=== PATIENT | male | born 1935 | race Caucasian/White ===

== ENCOUNTER 2016-12-22 17:24 | Inpatient (IN) | payer MEDICARE, OTHER ==
[2016-12-22] MEDS ORDERED: Sodium Chloride 0.9% 10 ML Syringe FLUSH PRN (17:36)
--- NOTE | 2016-12-22 17:36 | EDM.PDOC ---
ED HISTORY OF PRESENT ILLNESS - General Chief Complaint: Respiratory Problem Stated Complaint: Shortness of Breath Time Seen by Provider: 12/22/16 17:34 Source of Information: Reports: Patient, EMS notes reviewed, RN, RN notes reviewed History Limitations: Reports: No limitations - History of Present Illness INITIAL COMMENTS - FREE TEXT/NARRATIVE: Patient is brought to the ED at [facility] via EMS for shortness of breath that started today around 1pm. Symptom Onset Date: 12/22/16 Symptom Onset Time: 13:00 Timing/Duration: Reports: Gradual onset Severity: mild Associated Symptoms (General): Reports: no other symptoms Treatments CORPORATE EVENTS DIRECTOR: Reports: See EMS Report - Related Data Allergies/ADRs: Allergies Allergy/AdvReac Type Severity Reaction Status Date / Time Influenza Virus Vaccines Allergy Severe Cannot Verified 12/22/16 17:32 Remember amoxicillin Allergy Shortness Verified 12/22/16 18:15 of Breath atorvastatin calcium Allergy Muscle Verified 12/22/16 18:15 [From Lipitor] Aches ephedrine Allergy Hypertensio Verified 12/22/16 18:15 n ezetimibe [From Zetia] Allergy Nausea and Verified 12/22/16 18:16 Vomiting fenofibrate nanocrystallized Allergy Cannot Verified 12/22/16 18:16 [From Tricor] Remember fenofibrate,micronized Allergy Cannot Verified 12/22/16 17:32 [From Tricor] Remember gemfibrozil Allergy Cannot Verified 12/22/16 17:32 Remember niacin Allergy Cannot Verified 12/22/16 17:32 Remember Pcjhjzx-Amg-Las Reductase Allergy Muscle Verified 12/22/16 18:15 Inhibitor Aches ciprofloxacin AdvReac Nausea and Verified 12/22/16 18:15 Vomiting flu vaccine Allergy Cannot Uncoded 07/29/16 12:14 Remember Home Meds: Home Meds Acetaminophen [Pain Relief] 1,000 mg PO TID PRN 03/24/14 [History] Benazepril [Lotensin] 40 mg PO DAILY 03/24/14 [History] Cholecalciferol (Vitamin D3) [Vitamin D3] 2,000 unit PO DAILY 03/24/14 [History] Ferrous Sulfate [Iron] 325 mg PO DAILY 03/24/14 [History] Fish Oil/[place]-3 Fatty Acids [Fish Oil 1,000 MG] 2,000 mg PO BID 03/24/14 [ History] Flaxseed Oil 1,000 mg PO BID 03/24/14 [History] Multivitamin [Multi-Vitamin Daily] 1 tab PO DAILY 03/24/14 [History] Omeprazole [Prilosec] 20 mg PO BID PRN 03/24/14 [History] Potassium Chloride 10 meq PO DAILY 03/24/14 [History] Albuterol [Proventil HFA] 2 puff INH Q4H PRN 07/29/16 [History] Albuterol [Proventil Neb Soln] 1 inhalation NEB Q4H PRN 07/29/16 [History] Budesonide [Pulmicort] 0.5 mg IH BID 07/29/16 [History] Carboxymethylcellulos/Glycerin [Eq Lubricating Eye Drops] 1 drop OP BID [History] Clobetasol Propionate [Temovate] 1 applic TOP BID PRN 07/29/16 [History] Furosemide [Lasix] 40 mg PO DAILY 07/29/16 [History] Furosemide [Lasix] 60 mg PO DAILY 07/29/16 [History] Naproxen 500 mg PO BID 07/29/16 [History] Nystatin/Triamcinolone Crm [Mycolog Crm] 15 gm TOP BID PRN 07/29/16 [History] Bisacodyl [Dulcolax] 10 mg RECTAL DAILY PRN #0 supp 07/31/16 [Rx] Docusate Sodium [Colace] 100 mg PO DAILY cap 07/31/16 [Rx] Doxazosin [Cardura] 1 mg PO BEDTIME #30 tablet 08/02/16 [Rx] ALPRAZolam [Xanax] 0.25 mg PO BID 12/22/16 [History] Acetaminophen with Codeine [Tylenol with Codeine #3 Tablet] 1 each PO Q6HR PRN 12/22/16 [History] Meclizine [Antivert] 12.5 mg PO TID PRN 12/22/16 [History] tiZANidine HCl [Zanaflex] 4 mg PO TID PRN 12/22/16 [History] Past Medical History HEENT History: Reports: None Cardiovascular History: Reports: Heart Failure, High cholesterol, Hypertension, SOB on exertion, Other (see below) Other Cardiovascular History: Mitral valve regurgitation; PAD Respiratory History: Reports: Asthma Gastrointestinal History: Reports: Chronic constipation, GERD, GI bleed 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 Genitourinary History: Reports: BPH Musculoskeletal History: Reports: Osteoarthritis Neurological History: Reports: Other (see below) Other Neuro History: GBS; restless leg syndrome Psychiatric History: Reports: Anxiety Endocrine/Metabolic History: Reports: None Hematologic History: Reports: Anemia, Iron deficiency Oncologic (Cancer) History: Reports: None Dermatologic History: Reports: Other (see below) Other Dermatologic History: Dermatitis - Past Surgical History Head Surgeries/Procedures: Reports: None HEENT Surgical History: Reports: Cataract surgery GI Surgical History: Reports: Appendectomy, Cholecystectomy, Colonoscopy, Hernia , inguinal Social & Family History - Family History Family Medical History: Noncontributory (Patient's parents are both . His mother from "old age" and he cannot recall the cause of his father's . He has 8 living siblings and he is not aware of any medical issues; He has 1 brother of unknown causes.) - Tobacco Use Smoking Status *Q: Former Smoker Years of Tobacco use: 20 Used Tobacco, but Quit: Yes - Alcohol Use Days Per Week of Alcohol Use: 0 - Recreational Drug Use Recreational Drug Use: No - Living Situation & Occupation Living situation: Reports: , other (lives w/ adult son) Occupation: retired (former pharmacist) ED ROS GENERAL - Review of Systems Review Of Systems: See Below Constitutional: Denies: fever, chills, weakness Respiratory: Reports: shortness of breath, wheezing. Denies: cough, sputum Cardiovascular: Reports: Edema. Denies: Chest pain, Palpitations GI/Abdominal: Denies: Abdominal pain, Nausea, Vomiting Skin: Reports: no symptoms Neurological: Denies: dizziness, headache, numbness, paresthesia, tingling ED EXAM, GENERAL - Physical Exam Exam: See Below Exam Limited By: No limitations General Appearance: alert, no apparent distress Respiratory/Chest: no respiratory distress, decreased breath sounds, wheezing. No: crackles, rhonchi Cardiovascular: regular rate, rhythm, no JVD Peripheral Pulses: 2+: radial (L), radial (R) GI/Abdominal: normal bowel sounds, soft, non tender, no distention Extremities: pedal edema Neurological: alert, oriented Skin Exam: Warm, Dry, Intact, Normal color, No rash Course - Vital Signs Last Recorded V/S: Last Vital Signs Temp 36.0 C 12/22/16 17:36 Pulse 84 12/22/16 17:36 Resp 18 12/22/16 17:36 BP 159/63 H 12/22/16 17:36 Pulse Ox 95 12/22/16 17:36 - Orders/Labs/Meds Orders: Active Orders 24 hr Category Date Time Status Admission Status [Patient Status] [ADT] Routine ADT 12/22/16 19:25 Active EKG 12 Lead [EKG Documentation Completion] [RC] STAT Care 12/22/16 17:37 Active RT Aerosol Therapy [RC] ASDIRECTED Care 12/22/16 19:25 Active Chest 1V Frontal [CR] Stat Exams 12/22/16 17:37 Taken DD [D-DIMER QUANTITATIVE] [COAG] Stat Lab 12/22/16 19:24 Ordered Sodium Chloride 0.9% [Saline Flush] Med 12/22/16 17:36 Active 10 ml FLUSH ASDIRECTED PRN Peripheral IV Insertion Adult [OM.PC] Routine Oth 12/22/16 17:36 Ordered Medication Orders Sodium Chloride (Saline Flush) 10 ml FLUSH ASDIRECTED PRN PRN Reason: Keep Vein Open Labs: Laboratory Tests 12/22/16 12/22/16 12/22/16 Range/Units 18:02 18:02 18:02 WBC 3.9 L (4.0-10.0) x10^3/uL RBC 4.13 L (4.5-6.0) x10^6/uL Hgb 12.7 L (14.0-18.0) g/dL Hct 38.5 L (40.0-52.0) % MCV 93.2 H (78.0-93.0) fL MCH 30.8 (26.0-32.0) pg MCHC 33.0 (32.0-36.0) g/dL RDW Coeff of Mamie 13.0 (10.0-15.0) % Plt Count 158 (130-400) x10^3/uL Neut % (Auto) 75.9 (50.0-80.0) % Lymph % (Auto) 13.5 L (25.0-50.0) % [place] % (Auto) 7.1 (2.0-11.0) % Eos % (Auto) 1.5 (0.0-4.0) % Baso % (Auto) 2.0 H (0.2-1.2) % POC ABG pH (7.35-7.45) POC ABG pCO2 (35-45) mmHG POC ABG pO2 (80-105) mmHG POC ABG HCO3 (22-26) mmol/L POC ABG Total CO2 (23-27) mmol/L POC ABG O2 Sat (95-98) % POC ABG Base Excess (-2-3) mmol/L POC FiO2 Sodium 143 (136-145) mmol/L Potassium 4.1 (3.5-5.1) mmol/L Chloride 105 (98-107) mmol/L Carbon Dioxide 35 H (21-32) mmol/L BUN 29 H (7-18) mg/dL Creatinine 1.4 H (0.70-1.30) mg/dL Est Cr Clr Drug Dosing 38.69 mL/min Estimated GFR (MDRD) 49 Glucose 183 H (74-106) mg/dL Lactic Acid (0.4-2.0) mmol/L Calcium 8.8 (8.5-10.1) mg/dL Phosphorus 3.8 (2.6-4.7) mg/dL Magnesium 1.9 (1.8-2.4) mg/dL Creatine Kinase 259 (39-308) U/L Creatine Kinase Index 1.0 (0.0-4.0) % CK-MB (CK-2) 2.7 (0.0-3.6) ng/mL Troponin I 0.049 (<=0.056) ng/mL C-Reactive Protein 0.3 (<=0.9) mg/dL B-Natriuretic Peptide 985 H (<=450) pg/mL POC Result Comm 12/22/16 12/22/16 Range/Units 18:02 18:38 WBC (4.0-10.0) x10^3/uL RBC (4.5-6.0) x10^6/uL Hgb (14.0-18.0) g/dL Hct (40.0-52.0) % MCV (78.0-93.0) fL MCH (26.0-32.0) pg MCHC (32.0-36.0) g/dL RDW Coeff of Mamie (10.0-15.0) % Plt Count (130-400) x10^3/uL Neut % (Auto) (50.0-80.0) % Lymph % (Auto) (25.0-50.0) % [place] % (Auto) (2.0-11.0) % Eos % (Auto) (0.0-4.0) % Baso % (Auto) (0.2-1.2) % POC ABG pH 7.320 L (7.35-7.45) POC ABG pCO2 65 H* (35-45) mmHG POC ABG pO2 95 (80-105) mmHG POC ABG HCO3 34 H (22-26) mmol/L POC ABG Total CO2 36 H (23-27) mmol/L POC ABG O2 Sat 96 (95-98) % POC ABG Base Excess 7 H (-2-3) mmol/L POC FiO2 0.32 Sodium (136-145) mmol/L Potassium (3.5-5.1) mmol/L Chloride (98-107) mmol/L Carbon Dioxide (21-32) mmol/L BUN (7-18) mg/dL Creatinine (0.70-1.30) mg/dL Est Cr Clr Drug Dosing mL/min Estimated GFR (MDRD) Glucose (74-106) mg/dL Lactic Acid 1.3 (0.4-2.0) mmol/L Calcium (8.5-10.1) mg/dL Phosphorus (2.6-4.7) mg/dL Magnesium (1.8-2.4) mg/dL Creatine Kinase (39-308) U/L Creatine Kinase Index (0.0-4.0) % CK-MB (CK-2) (0.0-3.6) ng/mL Troponin I (<=0.056) ng/mL C-Reactive Protein (<=0.9) mg/dL B-Natriuretic Peptide (<=450) pg/mL POC Result Comm Called critical res Meds: Medications Generic Name Dose Route Start Last Admin Trade Name Freq PRN Reason Stop Dose Admin Sodium Chloride 10 ml 12/22/16 17:36 Saline Flush FLUSH ASDIRECTED PRN Keep Vein Open Discontinued Medications Generic Name Dose Route Start Last Admin Trade Name Freq PRN Reason Stop Dose Admin Albuterol/Ipratropium 3 ml 12/22/16 19:25 Duoneb 3.0-0.5 Mg/3 Ml NEB 12/22/16 19:26 ONETIME ONE Methylprednisolone Sodium Succinate 125 mg 12/22/16 19:24 Solu-Medrol IVPUSH 12/22/16 19:25 ONETIME ONE Departure - Departure Time of Disposition: 19:29 Disposition: Admitted As Inpatient 66 Condition: fair Clinical Impression: Hypoxia, Shortness of breath Referrals: Yasmni Ford MD [Primary Care Provider] - ED Communication - ED Communication Date/Time Date: 12/22/16 Time Called: 19:16 - Discussed Case With (1) Discussed Case With (1): Radiologist - Conversation Summary Radiology Reading Discussed with Radiologist: Yes - Problem List Review Problem List Initiated/Reviewed/Updated: Yes - My Orders Last 24 Hours: My Active Orders 12/22/16 17:36 Sodium Chloride 0.9% [Saline Flush] 10 ml FLUSH ASDIRECTED PRN Peripheral IV Insertion Adult [OM.PC] Routine 12/22/16 17:37 EKG 12 Lead [EKG Documentation Completion] [RC] STAT Chest 1V Frontal [CR] Stat 12/22/16 19:24 DD [D-DIMER QUANTITATIVE] [COAG] Stat 12/22/16 19:25 Admission Status [Patient Status] [ADT] Routine RT Aerosol Therapy [RC] ASDIRECTED - Assessment/Plan Admission H&P: Please use this note as an admission H&P Last 24 Hours: My Active Orders 12/22/16 17:36 Sodium Chloride 0.9% [Saline Flush] 10 ml FLUSH ASDIRECTED PRN Peripheral IV Insertion Adult [OM.PC] Routine 12/22/16 17:37 EKG 12 Lead [EKG Documentation Completion] [RC] STAT Chest 1V Frontal [CR] Stat 12/22/16 19:24 DD [D-DIMER QUANTITATIVE] [COAG] Stat 12/22/16 19:25 Admission Status [Patient Status] [ADT] Routine RT Aerosol Therapy [RC] ASDIRECTED Plan: Case discussed with Dr. Soni. Accepted patient for acute admission.
[2016-12-22] MEDS ORDERED: methylPREDNISolone Sodium Succinate 125 MG/2 ML SDV IVPUSH ONE (19:24)
[2016-12-22] MEDS ORDERED: Albuterol/Ipratropium 3.0-0.5 MG/3 ML Neb Soln NEB ONE (19:25)
[2016-12-22] MEDS ORDERED: Albuterol 0.083% 2.5 MG/3 ML Neb Soln NEB PRN (22:08)
[2016-12-22] MEDS ORDERED: Acetaminophen 500 MG Tab PO PRN (22:17)
[2016-12-22] MEDS ORDERED: Acetaminophen/Codeine 300-30 MG Tab PO PRN (22:17)
[2016-12-22] MEDS ORDERED: tiZANidine 4 MG Tab PO PRN (22:17)
[2016-12-22] MEDS ORDERED: Non-Formulary Medication 1 Each (Clobetasol 1 APPLIC) TOP PRN (22:17)
[2016-12-22] MEDS: ALPRAZolam 0.25 MG Tab PO SCH (22:37)
[2016-12-22] MEDS: methylPREDNISolone Sodium Succinate 40 MG/1 ML SDV IVPUSH SCH (22:39)
[2016-12-22] MEDS: Sodium Chloride 0.9% 1,000 ML IV SCH (23:08)
[2016-12-23] MEDS: Albuterol/Ipratropium 3.0-0.5 MG/3 ML Neb Soln NEB SCH ×3 (01:42→14:47)
[2016-12-23] MEDS ORDERED: Budesonide 0.5 MG/2 ML Neb Susp NEB SCH (07:00)
[2016-12-23] MEDS ORDERED: Ferrous Sulfate 325 MG Tab PO SCH (08:00)
[2016-12-23] MEDS ORDERED: GLYCERIN OP SCH (08:00)
[2016-12-23] MEDS ORDERED: Enoxaparin 30 MG/0.3 ML Syringe SUBCUT SCH (08:00)
[2016-12-23] MEDS ORDERED: CARBOXYMETHYLCELLULOS OP SCH (08:00)
[2016-12-23] MEDS ORDERED: Non-Formulary Medication 1 Each (Flaxseed Oil [Flaxseed Oil] 1,000 MG) PO SCH (08:00)
[2016-12-23] MEDS ORDERED: Potassium Chloride 10 MEQ Tab.ER PO SCH (08:00)
[2016-12-23] MEDS ORDERED: Multivitamin, Stress Formula with Zinc Tab PO SCH (08:00)
[2016-12-23] MEDS ORDERED: Furosemide 20 MG Tab PO SCH (08:00)
[2016-12-23] MEDS ORDERED: Docusate Sodium 100 MG Cap PO SCH (08:00)
[2016-12-23] MEDS ORDERED: [UNRECOGNIZED DRUG - OTHER] OP SCH (08:00)
[2016-12-23] MEDS ORDERED: Cholecalciferol (Vitamin D3) 1,000 Unit Tab PO SCH (08:00)
[2016-12-23] MEDS ORDERED: Fish Oil/Omega-3 Fatty Acids 1 Gm Cap PO SCH (08:00)
[2016-12-23] MEDS ORDERED: Omeprazole 20 MG Cap.CR PO SCH (08:00)
[2016-12-23] MEDS: ALPRAZolam 0.25 MG Tab PO SCH (08:36)
[2016-12-23] MEDS ORDERED: cefTRIAXone 1 GM Vial IVPUSH SCH (10:15)
[2016-12-23] MEDS: methylPREDNISolone Sodium Succinate 40 MG/1 ML SDV IVPUSH SCH (10:25)
--- NOTE | 2016-12-23 10:57 | PN ---
Progress Note for LANA SALAZAR Date: 12/23/2016 Room #: VM.215 SUBJECTIVE: An 81-year-old white male admitted last evening through the emergency room with respiratory disorder with elevated pCO2, diagnosed with COPD exacerbation with CO2 retention and hypoxia. He was placed on Pulmicort, Solu- Medrol, DuoNebs, albuterol, and some small amount of IV fluids and monitored overnight. His is saying maybe a little bit better this morning, somewhat less short of breath and no cough. OBJECTIVE: General: He is alert. He is afebrile. Vital Signs: Blood pressure is 158/88, pulse is 90 and regular, and O2 sats of 93% on 3 L. Heart: Regular rate and rhythm. No murmur heard. Lungs: Have some decreased breath sounds at bases and crackles in the right base. No wheezing heard at this time. Abdomen: Soft. No masses. Extremities: Trace edema. He does have TAMI hose on. Extremities warm and dry. LABORATORY DATA: His influenza nasal swabs were both negative for A and B. His white count this morning 3.5, hemoglobin 12.5 stable. Electrolytes are stable. BUN of 29, creatinine 1.3. Glucose 173. ASSESSMENT: 1. Chronic obstructive pulmonary disease -acute exacerbation. 2. Hypoxia. 3. CO2 retention. PLAN: We will continue present management. We will TKO his IV. We will add some Rocephin 1 g q.24 hours. Of note, he has tolerated Keflex in the past. Continue to monitor his condition. Dr. Yasmin Ford will assume care in the morning. FM: 12/23/2016 10:07:01 MODL: 12/23/2016 10:50:56 /[id number]
[2016-12-23] MEDS ORDERED: Furosemide 40 MG Tab PO SCH (12:00)
[2016-12-23] MEDS: Sodium Chloride 0.9% 1,000 ML IV SCH (15:34)
[2016-12-23 16:55] VITALS: BP 135/48
[2016-12-23] MEDS ORDERED: Aspirin 81 MG Tab.Chew PO ONE (17:13)
--- NOTE | 2016-12-24 11:15 | HP ---
REASON FOR ADMISSION: Shortness of breath/respiratory difficulty. HISTORY: This is an 81-year-old white male, who was at home with his son who is his primary caregiver. His son noticed that sometime between 1:00 and 1:30 today that he felt like he quit breathing. He was noted to have some labored breathing. His son was able to arouse him and make him awake. At 2:30, he had another episode where he dropped his head in his wheelchair, he was minimally responsive and had poor respiratory effort. Ambulance was called, he was brought to the emergency room by EMS. In the ER, his O2 sats were 80%. Patient doesn't remember much what happened this afternoon, he does remember going to [facility] this morning in the [facility], went home about 11 and had lunch and then remembers coming to the hospital and after he had received some oxygen he had improved memory. He denies any recent illness. No fever or chills. No chest pain. Has been sleeping well last night. PAST MEDICAL HISTORY: 1. 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 He has significant weakness of all of his extremities. He is mostly wheelchair bound, but he is able to transfer some and ambulate with the help of 2 crutches. His son is his primary provider. 2. Hypertension. 3. Congestive heart failure with mitral valve regurgitation. 4. Hyperlipidemia and intolerant to all statins. 5. Chronic constipation. 6. GERD. 7. Osteoarthritis. 8. Restless legs syndrome. 9. Asthma, this was diagnosed when he was a child. He currently is taking his Pulmicort, albuterol, and Atrovent nebs for this. PAST SURGICAL HISTORY: Cholecystectomy, appendectomy, colonoscopy. MEDICATIONS: Pulmicort inhaler daily, Prilosec 20 mg daily, Zanaflex 4 mg t.i.d. p.r.n., potassium 10 mEq daily, Mycolog-II cream b.i.d. p.r.n., Naprosyn 500 mg b.i.d., multivitamin daily, Antivert 12.5 mg p.o. t.i.d. p.r.n., Lasix 100 mg daily, flaxseed oil 1000 mg b.i.d., fish oil 2000 mg b.i.d., iron 325 mg daily, Cardura 1 mg at bedtime, Colace 100 mg daily, Temovate topically b.i.d. p.r.n., vitamin D3 2000 units daily, lubricating eyedrops b.i.d., Lotensin 40 mg daily, albuterol nebulizer p.r.n., albuterol inhaler p.r.n., Tylenol with codeine #3 one q.6 hours p.r.n., Tylenol 1000 mg t.i.d. p.r.n., and Xanax 0.25 mg b.i.d. ALLERGIES AND SENSITIVITIES: Amoxicillin, flu vaccine, Tricor, gemfibrozil, niacin, all statins, ciprofloxacin, Nifedin, and Zetia. HABITS: Tobacco use, there was a 30+ pack-year history of smoking, quit many years ago. FAMILY HISTORY/SOCIAL HISTORY: He is a living at home with his son as his caregiver. He is a , has 1 son and 1 daughter. REVIEW OF SYSTEMS: He has some head congestion when he lies down at night. He uses nebulizers daily. Has not had any recent illness. He does were glasses. No headache. No URI. No cough. No history of AL. No nausea or vomiting, no abdominal pain. No change in bowel habits. He does have chronic constipation. No urinary symptoms, although son reported urinary incontinence today. No change in his pattern of swelling in his lower extremities. He denies any pain in his extremities. He does have chronic dermatitis of both lower extremities. OBJECTIVE: General: He is alert, lying in bed. Vital Signs: He is afebrile. Pulse of 90, blood pressure is 142/91, respirations are 20, O2 sats 94% on 3 liters. HEENT: Pupils unremarkable. TMs negative. Throat clear. Neck-no adenopathy. Heart: Regular rate and rhythm. No murmur heard. Lungs: Decreased breath sounds, many at the left, and some scattered rhonchi. Abdomen: Soft. Obese. Nontender. No masses palpable. No hepatosplenomegaly noted. : Not done. Extremities: Limited range of motion. There is a weakness from Guillain-[place] syndrome. Significant weakness in both upper and lower extremities. Sensation is intact. Pulses are intact. Neurological: Sensation seems to be intact. Skin: Lower extremities have some areas of chronic stasis dermatitis present. There is trace edema history, this is unchanged from his previous baseline. LABORATORY DATA: White count 3.9, hemoglobin 12.7. D-dimer is normal. ABG showed pH of 7.32, pCO2 of 65, PO2 of 95, FiO2 was 0.32. Electrolytes normal. Potassium is 4.1, BUN is 29, creatinine is 1.4, glucose is 183, lactic acid is normal. CRP is normal. Troponin is negative. Magnesium is normal. C-reactive protein is normal. ProBNP is 985. Chest x-ray shows some mild cardiomegaly, no infiltrates seen. Nasal swabs for influenza screen not available yet. In the emergency room, he was medicated with oxygen, DuoNeb, and 125 mg of Solu- Medrol IV push 1 time order. ASSESSMENT: 1. Acute exacerbation of chronic obstructive pulmonary disease with hypoxia. 2. CO2 retention. PLAN: Patient is admitted to acute care inpatient status. He will be treated with DuoNeb scheduled and albuterol nebs q.2 hours p.r.n., Pulmicort nebulizer b.i.d., and IV Solu-Medrol b.i.d. We will hold his home medications related to these medications. Continue his other home medications except for his topicals and Antivert. Also, hold his Naprosyn. Keep him on O2, but not over 4 L nasal cannula because of his CO2 level. If he develops any additional respiratory distress, we may need to consider BiPAP. Patient identifies that he is a DNR/DNI. Son was present during the exam. Questions were answered. The patient identified Dr. Yasmin Ford as primary provider. She will assume care on Saturday. FM: 12/22/2016 22:37:23 MODL: 12/23/2016 03:10:44 /[id number] ILAN
--- NOTE | 2016-12-24 23:09 | DISCH ---
FINAL DIAGNOSES: 1. Non-ST elevation myocardial infarction ACS. 2. Bigeminy. 3. Chronic obstructive pulmonary disease - acute exacerbation. 4. Chronic obstructive pulmonary disease with CO2 retention. 5. Hypoxia. BRIEF HISTORY: An 81-year-old white male, admitted to acute care status last evening with respiratory distress and somnolence. In the ER, he was found to have a pCO2 of 65, significant CO2 retention. He was medicated with some oxygen to nebulizers and some Solu-Medrol and admitted to the hospital. Last night, he was continued with his DuoNebs, albuterol nebs, and Pulmicort nebulizers and seemed to do well. His O2 sats were running in the 90%-94% range on about 3 L. Today about noon, he was noted to be in bigeminy and then this afternoon he remained in bigeminy. His O2 sats were noted to drop into the low 80s when he was sleeping. Even on this 3 L nasal cannula, they did improve to the low 90s when he was awake. He denied any chest pain or any change in his respiratory symptoms with his bigeminy. I was notified of bigeminy and came in to further assess him. He was resting comfortably. Denied any pain or discomfort. EKG at that time showed bigeminy. During admission, the EKG did not show this. LABORATORY DATA: On admission, his white count 3.9 and hemoglobin 12.7. He has remained stable on today's repeat lab. D-dimer on admission was 0.41 normal. Blood gases on admission; pCO2 of 65 and pO2 of 95. Today, his pCO2 is 44, but his pO2 was 58 that was on 3 L. Electrolytes remain normal. Creatinine is 1.3 today. Blood glucose 173. However, his troponin at admission was normal at 0.049, today it was 0.40, a ten-fold increase. The patient was given 4 baby aspirin at time his non-STEMI ACS was diagnosed. I contacted [facility], talked to Dr. Waddell, Internal Medicine Hospitalist. The patient's condition was explained to him. He accepted the patient and transferred to [facility] for further care. See discharge packet for discharge medications. Forms completed. The patient transferred to [place] by ALS ambulance. Copies of records were sent. Discharge day evaluation was greater than 30 minutes. FM: 12/23/2016 17:51:07 MODL: 12/24/2016 23:00:51 /[id number] MTDWan
== END 2016-12-23 17:55 | disposition short-term general hospital (02) | DRG 190 ==
LOC: VM.ED 17:24 → SUPCPDRO 17:24 → VM.MS 19:25
PROVIDERS: ADMIT Family Medicine; ATTEND Family Medicine
DX: J44.1 Chronic obstructive pulmonary disease with (acute) exacerbation (principal); I21.4 Non-ST elevation (NSTEMI) myocardial infarction; E87.2 Acidosis; J45.909 Unspecified asthma, uncomplicated; Z87.891 Personal history of nicotine dependence; R09.02 Hypoxemia; R00.8 Other abnormalities of heart beat; I11.0 Hypertensive heart disease with heart failure; I50.9 Heart failure, unspecified; E78.00 Pure hypercholesterolemia, unspecified; I34.0 Nonrheumatic mitral (valve) insufficiency; I73.9 Peripheral vascular disease, unspecified; K21.9 Gastro-esophageal reflux disease without esophagitis; K59.00 Constipation, unspecified; N40.0 Benign prostatic hyperplasia without lower urinary tract symptoms; M19.90 Unspecified osteoarthritis, unspecified site; G25.81 Restless legs syndrome; F41.9 Anxiety disorder, unspecified; D50.9 Iron deficiency anemia, unspecified; Z79.899 Other long term (current) drug therapy; Z88.1 Allergy status to other antibiotic agents; Z88.7 Allergy status to serum and vaccine; Z88.8 Allergy status to other drugs, medicaments and biological substances; Z66 Do not resuscitate
CPT/HCPCS: 36415; 36600; 71010; 80048; 82550; 82553; 82803; 82962; 83605; 83735; 83880; 84100; 84484; 85025; 85027; 85379; 86140; 87804; 93005; 94640-76; 94760; 96374; 99284-GF; 99285; A9270-GY; J0696; J1650; J2920; J2930; J7030; J7050; J7620-GY

== ENCOUNTER 2017-04-20 11:42 | Inpatient (IN) | payer MEDICARE, OTHER ==
[2017-04-20 12:56] LABS: CHLORIDE,CL 105 mmol/L (98-107); SODIUM,NA 145 mmol/L (136-145)
[2017-04-20] MEDS ORDERED: Albuterol 0.083% 2.5 MG/3 ML Neb Soln NEB PRN (16:05)
[2017-04-20] MEDS: Enoxaparin 40 MG/0.4 ML Syringe SUBCUT SCH (16:44)
[2017-04-20] MEDS: Furosemide 40 MG/4 ML VIAL IVPUSH SCH ×2 (16:44→23:02)
[2017-04-20] MEDS: Sodium Chloride 0.9% 10 ML Syringe FLUSH PRN (16:44)
[2017-04-20] MEDS: Budesonide 0.5 MG/2 ML Neb Susp NEB SCH (16:45)
[2017-04-20] MEDS: Aspirin 81 MG Tab.Chew PO SCH (16:45)
[2017-04-20] MEDS: Albuterol/Ipratropium 3.0-0.5 MG/3 ML Neb Soln NEB SCH ×2 (17:03→23:03)
[2017-04-20] MEDS: Naproxen 500 MG Tab PO SCH (17:03)
[2017-04-20] MEDS: Fish Oil/Omega-3 Fatty Acids 1 Gm Cap PO SCH (19:51)
[2017-04-20] MEDS: Dextran 70/Hypromellose/PF Ophth Soln 0.9 ML UD EYEBOTH SCH (19:51)
[2017-04-20] MEDS: Carvedilol 3.125 MG Tab PO SCH (19:52)
[2017-04-20] MEDS: Acetaminophen/Codeine 300-30 MG Tab PO PRN (19:52)
[2017-04-21] MEDS: Acetaminophen/Codeine 300-30 MG Tab PO PRN ×3 (01:55→17:12)
[2017-04-21] MEDS: Omeprazole 20 MG Cap.CR PO SCH (06:10)
[2017-04-21] MEDS: Budesonide 0.5 MG/2 ML Neb Susp NEB SCH ×2 (07:16→19:55)
[2017-04-21] MEDS: Albuterol/Ipratropium 3.0-0.5 MG/3 ML Neb Soln NEB SCH ×4 (07:17→23:07)
[2017-04-21] MEDS: Ferrous Sulfate 325 MG Tab PO SCH (07:33)
[2017-04-21] MEDS: Multivitamins with Iron/Calcium/Folic Acid/Minerals Tab PO SCH (07:33)
[2017-04-21] MEDS: Docusate Sodium 100 MG Cap PO SCH (07:33)
[2017-04-21] MEDS: Cholecalciferol (Vitamin D3) 1,000 Unit Tab PO SCH (07:33)
[2017-04-21] MEDS: Aspirin 81 MG Tab.Chew PO SCH (07:33)
[2017-04-21] MEDS: Potassium Chloride 10 MEQ Tab.ER PO SCH (07:33)
[2017-04-21] MEDS: Naproxen 500 MG Tab PO SCH ×2 (07:34→17:01)
[2017-04-21] MEDS: Carvedilol 3.125 MG Tab PO SCH ×2 (07:34→19:54)
[2017-04-21] MEDS: Fish Oil/Omega-3 Fatty Acids 1 Gm Cap PO SCH ×2 (07:34→19:54)
[2017-04-21] MEDS: Furosemide 40 MG/4 ML VIAL IVPUSH SCH ×3 (07:34→23:07)
[2017-04-21] MEDS: Dextran 70/Hypromellose/PF Ophth Soln 0.9 ML UD EYEBOTH SCH ×2 (07:35→19:54)
--- NOTE | 2017-04-21 12:01 | PN ---
Progress Note for LANA SALAZAR Date: 04/21/2017 Room #: VM.217 SUBJECTIVE: An 82-year-old white male admitted yesterday with unresponsive episode following swallowing problem with some banana. There was initial concern for aspiration pneumonia, however, he has not developed any symptoms of aspiration pneumonia. His COPD remains fair. He still remains short of breath. He does not feel it is any worse. He has only been using the albuterol MDI at home on a rare basis. He probably needs to use albuterol DuoNeb more frequently as nebulizer as MDI is probably hard for him to use. He only takes budesonide once a day. His stasis ulcers stayed about the same. He had been getting daily dressing changes by nursing staff. See their notes for details. He is followed by real estate specialist in [place]. He is scheduled for a speech therapy evaluation and videofluoroscopy because of swallowing issues. His congestive heart failure is about worse based on his lab work with an elevated proBNP. His edema is improving because his legs have been elevated mor. OBJECTIVE: General: He is alert. He is afebrile. Vital Signs: Blood pressure is 109/55, pulse of 80, and O2 sats 92% on 1 L. Heart: Regular rate and rhythm. Lungs: Have some scattered rhonchi and decreased breath sounds. Abdomen: Obese. Extremities: His edema is improved. Stasis ulcers are still present. See nurse's note for details. Stasis ulcers involved in the right lower extremity and appears to be a couple of wounds on the heel also. LABORATORY DATA: White count 5.3, hemoglobin is down to 10.6. Electrolytes are normal. Creatinine is improved to 1.6. ProBNP is elevated at 3067, yesterday was 1710. I's and O's has only had about 1075 out, even though he has been getting 120 mg of Lasix IV, spaced out over the day. ASSESSMENT: 1. Unresponsiveness/resolved. 2. Swallowing issues, pending evaluation. 3. Chronic obstructive pulmonary disease. 4. Congestive heart failure. 5. Stasis ulcers, right lower extremity. PLAN: 1. Add Zaroxolyn 2.5 mg as a 1 time dose of 0.5 hour before next scheduled Lasix dose. 2. Increase his budesonide to b.i.d. 3. Continue wound cares. Dr. Ford will assume care in the morning. FM: 04/21/2017 09:41:13 MODL: 04/21/2017 11:48:40 /[id number] MTDWan
[2017-04-21] MEDS: Enoxaparin 40 MG/0.4 ML Syringe SUBCUT SCH (15:06)
[2017-04-21] MEDS ORDERED: Metolazone 2.5 MG Tab PO ONE (15:30)
[2017-04-21] MEDS: Sodium Chloride 0.9% 10 ML Syringe FLUSH PRN (23:08)
[2017-04-22] MEDS: Albuterol/Ipratropium 3.0-0.5 MG/3 ML Neb Soln NEB SCH ×5 (07:07→20:55)
[2017-04-22] MEDS: Budesonide 0.5 MG/2 ML Neb Susp NEB SCH ×2 (07:07→20:56)
--- NOTE | 2017-04-22 08:24 | HP ---
REASON FOR ADMISSION: Unresponsiveness. HISTORY: An 82-year-old, white male, brought in by his son with whom he lives. Son noted he was having labored breathing during his sleep. The patient was able to transfer himself to a wheelchair, his son gave him banana to eat, sometime earlier this morning, closer to the noon day. The patient had trouble swallowing and had a choking episode. Apparently he quit breathing and became unresponsive for a period of time. The son was then able to help him clear some of that and he was able to swallow 3/4 of the banana and he choked up the rest of it. He became better. He did not have any loss of any urinary symptoms at that time. Denied any chest pain. He has chronic shortness of breath. He is stable, does not feel it is any worse than it has been. Son reports this is a second episode of a choking episode with concern for aspiration in the past 6 to 8 months. Apparently there has been no swallowing evaluation done for this. PAST MEDICAL HISTORY: The patient's past medical history is extensive. 1. COPD with CO2 retention. 2. Coronary disease with a non-STEMI. He is not felt to be a surgical candidate. 3. Congestive heart failure secondary to coronary artery disease. 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 5. Concern for obstructive sleep apnea that has not been evaluated. 6. Hypertension. 7. Mitral valve regurgitation. 8. Peripheral vascular disease. 9. He has chronic ulcers, wounds on both lower extremities being managed by the access control specialist. MEDICATIONS: Naprosyn 500 mg b.i.d., albuterol inhaler q.4 hours p.r.n. and nebulizers p.r.n., Lasix 60 mg twice a day and 40 mg in the evening. Tylenol with codeine q.4h p.r.n., Tylenol p.r.n., aspirin 81 mg daily, carvedilol 3.125 mg b.i.d., benazepril 20 mg daily, Colace 100 mg daily, Pulmicort nebulizer daily, vitamin D3 2000 units daily, lubricating eyedrops b.i.d., flaxseed oral b.i.d., iron 325 mg daily, Cardura 1 mg at bedtime, potassium 10 mEq daily, omeprazole 20 mg daily, and multivitamin daily. ALLERGIES AND SENSITIVITIES: Amoxicillin, influenza vaccine, Tricor, Gemfibrozil, Niacin, Lipitor, Ciprofloxacin, Ephedrine, and Zetia. IMMUNIZATIONS: DTaP is current, Pneumovax is current. REVIEW OF SYSTEMS: The patient does not have any home O2. His son reports snoring at night and some episodes of apnea. There was concern for obstructive sleep apnea, he is not on CPAP, he has not had a sleep study done. He states his bowels been moving okay, they moved yesterday. No urinary problems. No nausea, vomiting, abdominal pain. No cold symptoms. No fever or chills reported. He has noted fluid retention. OBJECTIVE: General: He is alert. He is afebrile. Vital signs: His pulse is 78, blood pressure is 129/57, respirations of 14, initial O2 sats were in the upper 80s, on presentation they were 94 on 2 liters. HEENT: TMs negative. Throat clear. Neck: No adenopathy. Heart: Regular rate and rhythm. No murmur heard. Lungs: Have some rhonchi in the bases and decreased breath sounds. Abdomen: Soft, obese, nontender. No masses palpable. No hepatosplenomegaly noted. Extremities: I+ peripheral edema. He does have support stockings on calves. He does have dressings on both legs for his leg ulcers. Extremities are warm and dry. He is able to move all 4 extremities, although there is weakness from his Guillain-[place]. LABORATORY DATA: White count is 5.3, hemoglobin 12.4, INR of 1. Electrolytes are normal. Creatinine is 2.0, which is little high for him. Glucose 172. Lactic acid 1.5. LFT's are normal. Troponin was negative. C-reactive protein 5.9. BNP is 1710, which is approximately double what was previously. His chest x-ray did not show any acute changes, there is an old left basilar atelectasis and infiltrate. EKG showed a sinus rhythm, rate of 73 with frequent PVCs. ASSESSMENT: 1. Unresponsive episode, felt secondary to choking. 2. Rule out aspiration. 3. Congestive heart failure. 4. Chronic obstructive pulmonary disease. 5. Coronary artery disease. PLAN: The patient will be placed on acute care status to monitor his condition and treat his congestive heart failure with some IV Lasix. We will monitor him for any developing symptoms of aspiration pneumonia. We will schedule a videofluoroscopy for Saturday and speech therapy evaluation for Saturday, because of his choking episodes, swallowing issues. He requests a DNR/DNI, resuscitation status. He identifies Dr. Yasmin Ford, his primary provider and she will assume care on Saturday. FM: 04/20/2017 16:23:21 MODL: 04/20/2017 21:41:46 /[id number] MTDD
[2017-04-22] MEDS: Aspirin 81 MG Tab.Chew PO SCH (08:53)
[2017-04-22] MEDS: Cholecalciferol (Vitamin D3) 1,000 Unit Tab PO SCH (08:54)
[2017-04-22] MEDS: Potassium Chloride 10 MEQ Tab.ER PO SCH ×3 (08:55→17:28)
[2017-04-22] MEDS: Fish Oil/Omega-3 Fatty Acids 1 Gm Cap PO SCH ×2 (08:55→20:54)
[2017-04-22] MEDS: Docusate Sodium 100 MG Cap PO SCH (08:55)
[2017-04-22] MEDS: Carvedilol 3.125 MG Tab PO SCH ×2 (08:55→20:55)
[2017-04-22] MEDS: Naproxen 500 MG Tab PO SCH ×2 (08:55→17:28)
[2017-04-22] MEDS: Omeprazole 20 MG Cap.CR PO SCH (08:55)
[2017-04-22] MEDS: Ferrous Sulfate 325 MG Tab PO SCH (08:55)
[2017-04-22] MEDS: Furosemide 40 MG/4 ML VIAL IVPUSH SCH (08:56)
[2017-04-22] MEDS: Multivitamins with Iron/Calcium/Folic Acid/Minerals Tab PO SCH (08:58)
[2017-04-22] MEDS ORDERED: Barium Sulfate 60% w/v Susp 355 ML Bottle PO ONE (10:39)
[2017-04-22] MEDS: Dextran 70/Hypromellose/PF Ophth Soln 0.9 ML UD EYEBOTH SCH ×2 (10:44→20:54)
--- NOTE | 2017-04-22 11:54 | PN ---
Progress Note for LANA SALAZAR Date: 04/22/2017 Room #: VM.217 SUBJECTIVE: The patient was admitted on 04/20/2017 with an unresponsive episode after trying to eat a banana quite quickly, but he was also having problems with more winded that morning and shortness of breath. He does have known history of some CHF. He has also been doctoring with the right leg ulcers on his shins and his heels with Dr. Sotelo, and he had an appointment today there. He has improved greatly with using the ascorbic dressing as well as compression wraps to his legs. He has been having pain on his legs related to the dressings. He is also to be set up for arterial studies for his right leg for concern about advancement of peripheral artery disease. The patient is deconditioned with his Guillain-[place] and paraplegia related to this with difficulty hand movements as well as transferring because of shoulder pain. OBJECTIVE: Vital Signs: The patient's weight has not been checked since being admitted. His temperature is 37.4, pulse 81, blood pressure is 130/74, respirations are 16, sats are 95% on 1 L of oxygen. His intake yesterday was 660, question output was 1700. Wonder about the accuracy of recording. General: He is alert, talkative about his baseline self Heart: Regular rate and rhythm. Lungs: Clear to auscultation. Abdomen: Obese. Extremities: Have just trace edema. They are perfused. He does have his right leg wrapped. LABORATORY DATA: Today shows that his hemoglobin was 10.4, which is down from 12.4 on admission, questionable dilutional. White blood cell count 5.6, platelets are 178. His sodium is 143, potassium is reduced to 3.4, creatinine 1.5 which has improved. GFR is 45, glucose 109, calcium is 8.4. His proBNP was elevated, however, that might have been related to his reduced renal function at 3000 yesterday. Urine is normal. IMPRESSION: 1. Syncopal spell related to choking. 2. Congestive heart failure exacerbation. 3. Hypokalemia, mild. 4. Right leg ulcers, which are vascular ulcers and pressure ulcers. 5. Chronic obstructive pulmonary disease. 6. Congestive heart failure. 7. Some sleep disorder. 8. Guillain [place] 9. 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 Chronic shoulder pain. PLAN: The patient had been added on Zaroxolyn. His furosemide had been increased. Wound cares will continue. We will repeat chest x-ray to see about CHF. We will increase his potassium replacement, also watch his hemoglobin as this has dropped and anticipate the patient will most likely need swing bed for continued strengthening and we will need to strongly have the patient consider to have a nocturnal sleep study done, which would need to be done in [place]. GM04/22/2017 08:22:10 MODL: 04/22/2017 09:22:10 /[id number] MTDWan
[2017-04-22] MEDS: Furosemide 20 MG Tab PO SCH (15:21)
[2017-04-22] MEDS: Enoxaparin 40 MG/0.4 ML Syringe SUBCUT SCH (15:22)
[2017-04-22] MEDS ORDERED: Furosemide 40 MG Tab PO SCH (18:00)
[2017-04-22] MEDS: Acetaminophen/Codeine 300-30 MG Tab PO PRN (20:53)
[2017-04-22] MEDS: Acetaminophen 500 MG Tab PO PRN (23:50)
[2017-04-23] MEDS: Omeprazole 20 MG Cap.CR PO SCH (06:16)
[2017-04-23 06:56] VITALS: BP 145/84
[2017-04-23] MEDS: Albuterol/Ipratropium 3.0-0.5 MG/3 ML Neb Soln NEB SCH ×2 (07:06→11:01)
[2017-04-23] MEDS: Budesonide 0.5 MG/2 ML Neb Susp NEB SCH (07:06)
[2017-04-23] MEDS: Potassium Chloride 10 MEQ Tab.ER PO SCH (07:33)
[2017-04-23] MEDS: Dextran 70/Hypromellose/PF Ophth Soln 0.9 ML UD EYEBOTH SCH (07:33)
[2017-04-23] MEDS: Docusate Sodium 100 MG Cap PO SCH (07:34)
[2017-04-23] MEDS: Ferrous Sulfate 325 MG Tab PO SCH (07:34)
[2017-04-23] MEDS: Cholecalciferol (Vitamin D3) 1,000 Unit Tab PO SCH (07:34)
[2017-04-23] MEDS: Carvedilol 3.125 MG Tab PO SCH (07:34)
[2017-04-23] MEDS: Furosemide 20 MG Tab PO SCH ×2 (07:34→11:51)
[2017-04-23] MEDS: Naproxen 500 MG Tab PO SCH (07:34)
[2017-04-23] MEDS: Aspirin 81 MG Tab.Chew PO SCH (07:34)
[2017-04-23] MEDS: Acetaminophen/Codeine 300-30 MG Tab PO PRN (07:35)
[2017-04-23] MEDS: Multivitamins with Iron/Calcium/Folic Acid/Minerals Tab PO SCH (07:36)
[2017-04-23] MEDS: Fish Oil/Omega-3 Fatty Acids 1 Gm Cap PO SCH (07:36)
[2017-04-23] MEDS ORDERED: Lisinopril 20 MG Tab PO SCH (08:00)
--- NOTE | 2017-04-23 09:56 | PN ---
Progress Note for LANA SALAZAR Date: 04/23/2017 Room #: VM.217 SUBJECTIVE: The patient is feeling at his baseline. No problems with coughing or shortness of breath. The patient had been switched from IV Lasix to oral Lasix yesterday and has been diuresing about the same. He does have some pain with his wound care changes. He was noted yesterday to have some blasts on his CBC and so a peripheral smear was sent out and results are still pending today. His video swallow yesterday came back normal. OBJECTIVE: Vital Signs: His blood pressure is 145/84, his pulse is 74, sats are 91% on room air. Skin: [place], warm, and dry. His right anterior leg has ulcers that are present, which are filling in. His toes have multiple ulcers on them as well as right heel has an ulcer. Heart: Regular rate and rhythm. Lungs: Clear to auscultation. Abdomen: Obese. Price catheter has clear fluid. LABORATORY DATA: His lab today shows his white blood cell count 6.7, hemoglobin 11.0, platelets 165 with 16 lymphocytes, 12 monos. Sodium is 141; potassium is 3.4, which is slightly low; creatinine is 1.5 and at baseline. GFR is 45. Glucose is 108. His magnesium is 2.2, which is normal today. LFTs are normal. CRP is greatly improved to 2.8 from 5.9 on admission. ProBNP yesterday had improved to 2100. Albumin is 2.9. IMPRESSION: 1. Choking episode. 2. Syncopal spell secondary to choking. 3. Congestive heart failure exacerbation. 4. Hypokalemia, mild. 5. Ulcers on right leg and heel. 6. Guillain barre with paraplegia. PLAN: The patient is back to his baseline. We will increase his oral potassium to 1 pill twice a day. We will have him return to see me in a week's time. To note, his last echocardiogram was done in 11/2016, at which time, his ejection fraction was 45%. We will set him up for another echocardiogram as an outpatient. The patient will resume Home Health to see him for wound care changes. He will also continue to follow with Dr. Sotelo in [place] for his wound ulcers. Also, he will have vascular studies done as well. GM04/23/2017 09:16:31 MODL: 04/23/2017 09:48:12 /[id number]
[2017-04-23] MEDS: Acetaminophen 500 MG Tab PO PRN (10:15)
--- NOTE | 2017-04-24 07:36 | DISCH ---
ADDENDUM: It was realized that after the patient had been talk to physical therapy did not see the patient yesterday and when physical therapy assessed him today, they did find him to be weak and in need of therapy, also his oxygen levels with activity did drop below 90% which he is not on home oxygen. So, therefore he does need to have some rehabilitation for strengthening; so his discharge home will be canceled and instead he will be placed on physical therapy to obtain rehabilitation to be able to go home. Medications are as stated on discharge summary. To note, an echocardiogram will be set up for patient as an outpatient. He still can continue to see his wound care clinic from [facility]. GM04/23/2017 10:46:01 MODL: 04/23/2017 11:48:09 /[id number]
--- NOTE | 2017-04-24 07:41 | ER ---
Date of Service: 04/20/2017 SUBJECTIVE: Devon presents to the emergency room with episode of unresponsiveness. The patient's son states that he was consuming a banana and was having difficulty with swallowing and experiencing episode of choking when he was attempting to swallow the banana. The patient subsequently experienced a syncopal episode. The patient's son was able to manually clear his airway, but was experiencing some respiratory difficulty after that. Son states that he did have an episode of apnea during this event as well. Son states that he did not have any tonic-clonic movement or any other obvious episodes of possible seizure activity. PAST MEDICAL HISTORY: 1. COPD. 2. Coronary artery disease being managed medically due to inability to manage his disease surgically. 3. Congestive heart failure secondary to #2. 4. Guillain barre. 5. [place]VAL[place]. 6. Hypertension. 7. Peripheral vascular disease. 8. Valvular heart disease. MEDICATIONS: Please see nurse's notes. ALLERGIES: 1. Amoxicillin. 2. Influenza. 3. Tricor. 4. Gemfibrozil. 5. Niacin. 6. Cipro. 7. Lipitor. 8. Ephedrine. 9. Zetia. REVIEW OF SYSTEMS: Largely unobtainable. The patient states that he is not experiencing any chest pain, but is having some difficulties with breathing. Son states that he has not experienced any fever or chills to his knowledge. PHYSICAL EXAMINATION: General: This is an 82-year-old male patient, who is in no acute distress. Vital Signs: Blood pressure 129/57, heart rate is 14. Initial O2 saturation in the 80s improved into the low to mid 90s on oxygen per nasal cannula at 2 L/minute. HEENT: Mouth, oral mucosa is moist. No evidence of any retained material in his oropharynx. Neck: Supple without masses. There is no lymphadenopathy. Heart: Regular rate and rhythm. Lungs: He does have some rhonchi and decreased breath sounds bilaterally. Abdomen: Soft and nontender. There is no hepatosplenomegaly noted. There are no masses noted. Extremities: 1+ edema. He does have TAMI hose in place. He does move all extremities independently. LABORATORY DATA: WBC is 5.3, hemoglobin is 12.4. INR is 1. Sodium is 145, potassium is 4.8, chloride is 105, bicarb is 32, BUN is 58, creatinine is 2.0. GFR is 33, glucose is 172. Lactic acid is 1.5. Calcium is 8.4, corrected calcium is 8.88. LFTs are within normal limits. Troponin is negative. C-reactive protein is 5.9. ProBNP is 1710. Urinalysis revealed specific gravity is 1.015, negative for leukocytes and nitrites. PA and lateral chest x-ray was obtained. There does not appear to be any acute changes at this time. ASSESSMENT: Choking episode with subsequent syncope and apnea. PLAN: The patient was admitted. I did speak with Dr. Soni regarding admission for the patient. The patient will be admitted acutely. All questions were answered. MWK: 04/23/2017 22:56:21 MODL: 04/24/2017 03:18:38 /[id number]
--- NOTE | 2017-04-24 09:04 | DISCH ---
PRIMARY DIAGNOSES: 1. Choking episode causing syncopal spell. 2. Congestive heart failure exacerbation. 3. Vascular ulcers on right leg, combination of venous and arterial. 4. Pressure ulcer of right heel. 5. Questionable swallowing disorder ruled out. 6. Diagnosis of weakness secondary to Guillain-[place]. 7. 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 8. Hypertension. 9. Congestive heart failure. 10.Coronary artery disease. 11.Hypertension. 12.Hypokalemia, mild. 13.Abnormal white blood cell count. 14.Chronic shoulder pain related to rotator cuff problems. 15.Chronic obstructive pulmonary disease. DISCHARGE MEDICATIONS: His medications at discharge will be acetaminophen 1000 mg q.6 hours p.r.n., Tylenol with Codeine #3 one pill every 4 hours as needed, aspirin 81 mg 1 pill daily, budesonide 0.5 mg b.i.d., carvedilol 3.125 mg 1 pill b.i.d., vitamin D 2000 units daily, lubricating eye drops 1 drop b.i.d., docusate 100 mg 1 pill daily, doxazosin 1 mg 1 pill at bedtime, ferrous sulfate 325 one pill daily, flaxseed oil 1000 mg 1 pill b.i.d., benazepril 20 mg 1 pill daily, Naprosyn 500 mg 1 p.o. b.i.d., omeprazole 20 mg 1 pill daily, potassium chloride 10 mEq 1 p.o. b.i.d. which is a dose increase, albuterol nebs q.i.d., albuterol MDI 2 puffs q.4 hours p.r.n., furosemide 20 mg 3 pills twice a day and 2 pills once a day, and multivitamin 1 pill a day. SUMMARY OF ADMIT HISTORY AND PHYSICAL: The patient was living at home with his son. He had been eating a banana somewhat quickly, and he seemed to choke on it. He went unresponsive and 911 was called. By the time the ambulance got there, he was alert and responsive. He was a little bit short of breath. Chest x-ray was done, which showed questionable infiltrate. SUMMARY OF HOSPITAL COURSE: The patient was placed on IV Lasix. He did have a swallowing study done. He had a Price catheter placed for convenience for monitoring diuresis. The patient's potassium was noted to be slightly low at 3.4, so he was increased to 10 mEq 1 pill twice a day. Also, his budesonide orders were increased to twice a day. The patient had been seeing Dr. Sotelo from [place] for wound cares as he was having fairly significant right leg ulcer problems. He does have pending vascular studies. His lab that was done on admission, on 04/20/2017, showed white blood cell count 5.3, hemoglobin 12.4, platelets 160, 90 segs, 7 lymphocytes. INR was 1.0. Sodium 145, potassium 4.8, creatinine 2.0, GFR was 32, BUN was 58, glucose 172, calcium was 8.4, and lactic acid 1.5. LFTs were normal. CK was 2.1 with index 2.9, which was normal. ProBNP was 1710. Urine was dark, otherwise came back normal. By 04/23/2017, proBNP had gone up to 3000, however, that was felt to be probably more reflective of kidney function. On 04/22/2017, his white blood cell counts did show some blasts that were present, so peripheral smear was sent off and is pending at the time of this discharge summary. His lab on 04/23/2017 showed his hemoglobin is 11.0, white blood cell count 6.7, platelets 167, sodium was 141, potassium was 3.4, which was stable, but his oral potassium had just been increased. Creatinine was stable at 1.5. GFR 45. BUN was 52. Magnesium had improved to 2.2. CRP had improved from 5.9 down to 2.8, and proBNP had improved to 2100 the day prior. The patient was felt to be back at his baseline and not in need of skilled services as he will have daily dressing changes from Home Health. So, he will resume Home Health. I will be monitoring his home health. The patient is paraplegic and has motion with a motorized scooter. He can just barely transfer with crutches. He will keep his outpatient appointment with Dr. Sotelo as well as vascular surgeon with vascular studies. I do anticipate the patient to continue to decline of health due to his age as well as weakness. His son is the caregiver at home and, at times is not as helpful as he could be, and so the patient may eventually need to look at other services. He will need to have an echocardiogram set up as an outpatient to monitor his CHF. The patient may need to be taken off his nonsteroidals because of concerns with elevated GFR as well as renal function changes. He does use Tylenol #3 for pain control. To note, his budesonide should be used twice a day and not once a day. GM04/23/2017 09:24:34 MODL: 04/24/2017 08:46:33 /[id number] Addendum: After discharge was planned it was not known that PT had not seen him yet. When PT saw him today, they found that he could benefit from therapy, so he will be placed on swing bed instead. ILAN
== END 2017-04-23 11:51 | disposition swing bed (61) | DRG 155 ==
LOC: VM.ED 11:42 → VM.MS 14:06
PROVIDERS: ADMIT Family Medicine; ATTEND Family Medicine
DX: T17.228A Food in pharynx causing other injury, initial encounter (principal); G82.20 Paraplegia, unspecified; L97.919 Non-pressure chronic ulcer of unspecified part of right lower leg with unspecified severity; R09.89 Other specified symptoms and signs involving the circulatory and respiratory systems; J44.9 Chronic obstructive pulmonary disease, unspecified; Z66 Do not resuscitate; I25.10 Atherosclerotic heart disease of native coronary artery without angina pectoris; I50.9 Heart failure, unspecified; I11.0 Hypertensive heart disease with heart failure; G65.0 Sequelae of Guillain-Barre syndrome; L89.619 Pressure ulcer of right heel, unspecified stage; I73.9 Peripheral vascular disease, unspecified; X58.XXXA Exposure to other specified factors, initial encounter; Y92.009 Unspecified place in unspecified non-institutional (private) residence as the place of occurrence of the external cause; R55 Syncope and collapse; I25.2 Old myocardial infarction; G47.9 Sleep disorder, unspecified; I34.0 Nonrheumatic mitral (valve) insufficiency; Z88.1 Allergy status to other antibiotic agents; Z88.7 Allergy status to serum and vaccine; Z88.8 Allergy status to other drugs, medicaments and biological substances; E87.6 Hypokalemia; R53.1 Weakness; M25.519 Pain in unspecified shoulder
CPT/HCPCS: 36415; 71010; 71020; 74230; 80048; 80053; 81001; 82550; 82553; 83605; 83735; 83880; 84484; 85008; 85025; 85610; 86140; 87040; 92526-GN; 92611-GN; 93005; 94640-76; 94760; 97161-GP; 97165-GO; 99284-GF; 99285; A9270-GY; J1650; J1940; J7050

== ENCOUNTER 2017-04-23 11:16 | Inpatient (IN) | payer MEDICARE, OTHER ==
[2017-04-23] MEDS ORDERED: Albuterol 0.083% 2.5 MG/3 ML Neb Soln INH PRN (11:58)
[2017-04-23] MEDS ORDERED: Acetaminophen 500 MG Tab PO PRN (12:03)
[2017-04-23] MEDS ORDERED: Albuterol 0.083% 2.5 MG/3 ML Neb Soln NEB PRN (12:28)
[2017-04-23] MEDS ORDERED: Acetaminophen/Codeine 300-30 MG Tab PO PRN (12:28)
[2017-04-23] MEDS: Acetaminophen/Codeine 300-30 MG Tab PO PRN ×2 (12:42→22:12)
[2017-04-23] MEDS: Albuterol/Ipratropium 3.0-0.5 MG/3 ML Neb Soln NEB SCH ×2 (14:48→19:50)
[2017-04-23] MEDS ORDERED: Omeprazole 20 MG Cap.CR PO SCH (17:00)
[2017-04-23] MEDS: Potassium Chloride 10 MEQ Tab.ER PO SCH (17:10)
[2017-04-23] MEDS ORDERED: Enoxaparin 40 MG/0.4 ML Syringe SUBCUT SCH (18:00)
[2017-04-23] MEDS ORDERED: Naproxen 500 MG Tab PO SCH (18:00)
[2017-04-23] MEDS: Carvedilol 3.125 MG Tab PO SCH (19:48)
[2017-04-23] MEDS: Budesonide 0.5 MG/2 ML Neb Susp NEB SCH (19:50)
[2017-04-23] MEDS: Dextran 70/Hypromellose/PF Ophth Soln 0.9 ML UD EYEBOTH SCH (19:50)
[2017-04-23] MEDS: Fish Oil/Omega-3 Fatty Acids 1 Gm Cap PO SCH (19:50)
[2017-04-23] MEDS ORDERED: Carvedilol 3.125 MG Tab PO SCH (20:00)
[2017-04-23] MEDS ORDERED: Dextran 70/Hypromellose/PF Ophth Soln 0.9 ML UD EYEBOTH SCH (20:00)
[2017-04-23] MEDS ORDERED: Fish Oil/Omega-3 Fatty Acids 1 Gm Cap PO SCH (20:00)
[2017-04-24] MEDS: Acetaminophen/Codeine 300-30 MG Tab PO PRN ×2 (02:04→20:57)
[2017-04-24] MEDS: Albuterol/Ipratropium 3.0-0.5 MG/3 ML Neb Soln NEB SCH ×4 (07:10→20:56)
[2017-04-24] MEDS: Budesonide 0.5 MG/2 ML Neb Susp NEB SCH ×2 (07:10→20:56)
[2017-04-24] MEDS ORDERED: Aspirin 81 MG Tab.EC PO SCH (08:00)
[2017-04-24] MEDS ORDERED: Cholecalciferol (Vitamin D3) 1,000 Unit Tab PO SCH (08:00)
[2017-04-24] MEDS ORDERED: Enoxaparin 40 MG/0.4 ML Syringe SUBCUT SCH (08:00)
[2017-04-24] MEDS ORDERED: Docusate Sodium 100 MG Cap PO SCH (08:00)
[2017-04-24] MEDS ORDERED: Ferrous Sulfate 325 MG Tab PO SCH (08:00)
[2017-04-24] MEDS ORDERED: Multivitamins with Iron/Calcium/Folic Acid/Minerals Tab PO SCH (08:00)
[2017-04-24] MEDS: Cholecalciferol (Vitamin D3) 1,000 Unit Tab PO SCH (08:24)
[2017-04-24] MEDS: Aspirin 81 MG Tab.EC PO SCH (08:24)
[2017-04-24] MEDS: Ferrous Sulfate 325 MG Tab PO SCH (08:24)
[2017-04-24] MEDS: Multivitamins with Iron/Calcium/Folic Acid/Minerals Tab PO SCH (08:24)
[2017-04-24] MEDS: Lisinopril 20 MG Tab PO SCH (08:24)
[2017-04-24] MEDS: Carvedilol 3.125 MG Tab PO SCH ×2 (08:25→20:57)
[2017-04-24] MEDS: Furosemide 20 MG Tab PO SCH ×2 (08:25→11:55)
[2017-04-24] MEDS: Docusate Sodium 100 MG Cap PO SCH (08:25)
[2017-04-24] MEDS: Fish Oil/Omega-3 Fatty Acids 1 Gm Cap PO SCH ×2 (08:25→20:57)
[2017-04-24] MEDS: Potassium Chloride 10 MEQ Tab.ER PO SCH ×2 (08:25→17:11)
[2017-04-24] MEDS: Dextran 70/Hypromellose/PF Ophth Soln 0.9 ML UD EYEBOTH SCH ×2 (08:25→20:57)
[2017-04-24] MEDS: Acetaminophen 500 MG Tab PO PRN ×2 (08:27→22:38)
[2017-04-24] MEDS: Naproxen 500 MG Tab PO PRN ×2 (08:28→22:38)
[2017-04-24] MEDS: Enoxaparin 30 MG/0.3 ML Syringe SUBCUT SCH (17:11)
[2017-04-24] MEDS: Omeprazole 20 MG Cap.CR PO SCH (17:11)
[2017-04-24] MEDS: Furosemide 40 MG Tab PO SCH (17:11)
[2017-04-25] MEDS: Acetaminophen/Codeine 300-30 MG Tab PO PRN ×3 (03:21→21:56)
[2017-04-25] MEDS: Albuterol/Ipratropium 3.0-0.5 MG/3 ML Neb Soln NEB SCH ×4 (07:12→21:52)
[2017-04-25] MEDS: Budesonide 0.5 MG/2 ML Neb Susp NEB SCH ×2 (07:12→21:51)
[2017-04-25] MEDS: Lisinopril 20 MG Tab PO SCH (08:08)
[2017-04-25] MEDS: Multivitamins with Iron/Calcium/Folic Acid/Minerals Tab PO SCH (08:08)
[2017-04-25] MEDS: Ferrous Sulfate 325 MG Tab PO SCH (08:08)
[2017-04-25] MEDS: Potassium Chloride 10 MEQ Tab.ER PO SCH ×2 (08:09→17:33)
[2017-04-25] MEDS: Furosemide 20 MG Tab PO SCH ×2 (08:09→11:38)
[2017-04-25] MEDS: Docusate Sodium 100 MG Cap PO SCH (08:09)
[2017-04-25] MEDS: Aspirin 81 MG Tab.EC PO SCH (08:09)
[2017-04-25] MEDS: Carvedilol 3.125 MG Tab PO SCH ×2 (08:09→21:52)
[2017-04-25] MEDS: Cholecalciferol (Vitamin D3) 1,000 Unit Tab PO SCH (08:09)
[2017-04-25] MEDS: Fish Oil/Omega-3 Fatty Acids 1 Gm Cap PO SCH ×2 (08:09→21:52)
[2017-04-25] MEDS: Dextran 70/Hypromellose/PF Ophth Soln 0.9 ML UD EYEBOTH SCH ×2 (08:11→21:52)
--- NOTE | 2017-04-25 09:10 | PN ---
Progress Note for LANA SALAZAR Date: 04/25/2017 Room #: VM.217 SUBJECTIVE: The patient was having problems with pain and more spasms of his legs yesterday. He was wearing his AFOs during the day. His wounds have still been draining quite a bit. It was found that he was hypoxic yesterday and does require oxygen supplementation. OBJECTIVE: Vital Signs: His input is 590 and output is 1000 yesterday. His weights have not been taken on his current bed. His temperature is 36.8, pulse 72, respirations 16, and sats have been 93% on 2 L. General: He is alert and talkative to visit with, wearing oxygen. Heart: Regular rate and rhythm. Lungs: Clear. Abdomen: Soft. Extremities: Lower extremities have less edema. There is scaling of his skin. There is much serosanguineous drainage. LABORATORY DATA: His lab came back with his white blood cell count 5.3, hemoglobin 10.3, which is stable. Platelets are 162, 57 segs, and 18 lymphocytes. Sodium 143, potassium 3.9, creatinine 1.6, slight elevation. GFR is 42. CRP is 6.6, which has stayed okay. IMPRESSION: 1. Congestive heart failure exacerbation, improved. 2. Leg ulcers, multifactorial. 3. Congestive heart failure. 4. Guillain-[place]. 5. Leg weakness. 6. Hypoxemia. PLAN: We will continue therapy working with the patient. We will add tizanidine for muscle spasm and pain. We will add some oxycodone for other pain pills. The patient will need to check into having a home oxygen study done, as he will qualify for home oxygen. He will work with Respiratory Therapy. We will also get the patient in for a sleep study. The patient does see his wound care clinic people on 04/29/2017. GM04/25/2017 08:42:44 MODL: 04/25/2017 09:01:18 /[id number]
[2017-04-25] MEDS: oxyCODONE 5 MG Tab PO PRN ×2 (09:54→17:34)
[2017-04-25] MEDS: Omeprazole 20 MG Cap.CR PO SCH (17:33)
[2017-04-25] MEDS: Furosemide 40 MG Tab PO SCH (17:33)
[2017-04-25] MEDS: Enoxaparin 30 MG/0.3 ML Syringe SUBCUT SCH (17:33)
[2017-04-25] MEDS: tiZANidine 4 MG Tab PO PRN (21:57)
[2017-04-26] MEDS: Acetaminophen/Codeine 300-30 MG Tab PO PRN ×2 (03:45→12:01)
[2017-04-26 06:23] VITALS: BP 115/41
[2017-04-26] MEDS: Albuterol/Ipratropium 3.0-0.5 MG/3 ML Neb Soln NEB SCH ×2 (07:05→10:41)
[2017-04-26] MEDS: Budesonide 0.5 MG/2 ML Neb Susp NEB SCH (07:05)
[2017-04-26] MEDS: Multivitamins with Iron/Calcium/Folic Acid/Minerals Tab PO SCH (09:27)
[2017-04-26] MEDS: Potassium Chloride 10 MEQ Tab.ER PO SCH (09:27)
[2017-04-26] MEDS: Aspirin 81 MG Tab.EC PO SCH (09:27)
[2017-04-26] MEDS: Cholecalciferol (Vitamin D3) 1,000 Unit Tab PO SCH (09:27)
[2017-04-26] MEDS: Docusate Sodium 100 MG Cap PO SCH (09:27)
[2017-04-26] MEDS: Fish Oil/Omega-3 Fatty Acids 1 Gm Cap PO SCH (09:27)
[2017-04-26] MEDS: Ferrous Sulfate 325 MG Tab PO SCH (09:28)
[2017-04-26] MEDS: tiZANidine 4 MG Tab PO PRN (09:28)
[2017-04-26] MEDS: oxyCODONE 5 MG Tab PO PRN (09:28)
[2017-04-26] MEDS: Lisinopril 20 MG Tab PO SCH (09:28)
[2017-04-26] MEDS: Carvedilol 3.125 MG Tab PO SCH (09:28)
[2017-04-26] MEDS: Furosemide 20 MG Tab PO SCH ×2 (09:29→12:01)
[2017-04-26] MEDS: Dextran 70/Hypromellose/PF Ophth Soln 0.9 ML UD EYEBOTH SCH (09:29)
--- NOTE | 2017-04-29 09:47 | DISCH ---
DISCHARGE DIAGNOSES: 1. Syncopal spell related to choking. 2. Congestive heart failure exacerbation. 3. vascular ulcer on right leg as well as venous and arterial. 4. Pressure ulcer on right heel. 5. Guillain-[place]. 6. Paraplegia. 7. Hypertension. 8. Coronary artery disease. 9. Hypokalemia, mild. 10.Abnormal white blood cell count, peripheral smear still pending. 11.Chronic shoulder pain. 12.Chronic obstructive pulmonary disease. DISCHARGE MEDICATIONS: Acetaminophen 500 mg 2 pills every 6 hours as needed, Tylenol with codeine 1 pill every 4 hours as needed, albuterol nebs 2.5 q.2 hours p.r.n., DuoNebs 4 times a day, aspirin 81 mg 1 pill a day, budesonide 0.5 mg b.i.d. nebs, carvedilol 3.125 mg 1 p.o. b.i.d., vitamin D3 2000 units 1 pill daily, artificial tears 1 drop twice a day, docusate 000 mg 1 pill daily, doxazosin 1 mg 1 pill at bedtime, ferrous sulfate 325 one pill a day, [place] fish oil 1 pill twice a day, furosemide 40 mg 1 pill daily at noon, furosemide 20 mg 3 pills twice a day at 8:00 and noon, lisinopril 20 mg 1 pill daily, Naprosyn 500 mg 1 p.o. b.i.d., omeprazole 20 mg 1 pill daily, potassium chloride 10 mEq 1 p.o. b.i.d., oxycodone 5 mg 1 pill 4 times a day as needed for pain, Tizanidine 4 mg 1 pill every 8 hours as needed for muscle spasm, and multivitamin 1 pill daily. The patient will have home oxygen 2 L, as he had O2 sats done that were less than 80% at bedtime. The patient will require daily wound dressing changes on his right leg, heel, and foot. He was admitted to swing bed on 04/23/2017 and will be discharged on 04/25/2017. PRIMARY DIAGNOSES: 1. Weakness secondary to syncopal episode related to choking. 2. Congestive heart failure exacerbation. 3. Hypoxemia. 4. Leg ulcers on the right leg, anterior duong and right heel. 5. Guillain-[place]. 6. 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 7. Leg weakness. 8. Hypoxemia. 9. Hypokalemia. H AND P: The patient was admitted to acute care on 04/20/2017 after choking on a banana, short of breath. While on acute care, he was diuresed with IV Lasix and was placed on oxygen. He was noted though to be still weak with transfers and so he was felt to be able to be qualify for swing bed with physical therapy and it was also noted that he did require oxygen. The patient, to note, did have his last echocardiogram done in 11/2016, which is ejection fraction at that time was 45%. The patient previously had refused a sleep evaluation, as he had failed a nocturnal sleep study in 01/2017. The patient did undergo video swallow on acute care that came back normal. SUMMARY OF SWING BED COURSE: While on swing bed, he did have blood tests done on 04/25 that shows hemoglobin 10.3, white blood cell count 5.3, platelets are 162, he had a sodium of 143, potassium 3.9, creatinine 1.6, GFR is 42, glucose was 107, CRP was 6.6. DISCHARGE INSTRUCTIONS: The patient will follow up to see me in 1-2 weeks' time. To note, he did receive oxycodone for better pain control for his leg pain with dressing changes as it was significant as well as muscle spasms. He was placed on tizanidine 4 mg 3 times a day, which did seem to help. Patient previously had home health and he will continue home health. I will continue to manage the patient with observing. Patient is homebound due to his paraplegia with Guillain-[place]. He does require daily dressing changes as well as monitoring his oxygen for CHF. I will also tried to get a sleep study set up for him to have evaluation of need for possible CPAP. The patient's code level status is DNI/DNR. I do anticipate him to continue to decline health garcia due to age of his Guillain-[place] requiring more cares and eventually he will need to be in an assisted living set up and/or alf care. GM04/26/2017 08:35:08 MODL: 04/27/2017 03:54:50 /[id number]
== END 2017-04-26 13:18 | disposition home health service (06) | DRG 948 ==
LOC: VM.MS 11:51
PROVIDERS: ADMIT Family Medicine; ATTEND Family Medicine
DX: R53.1 Weakness (principal); G82.20 Paraplegia, unspecified; G61.0 Guillain-Barre syndrome; R09.02 Hypoxemia; R55 Syncope and collapse; I11.0 Hypertensive heart disease with heart failure; I50.9 Heart failure, unspecified; I25.10 Atherosclerotic heart disease of native coronary artery without angina pectoris; E87.6 Hypokalemia; J44.9 Chronic obstructive pulmonary disease, unspecified; L89.629 Pressure ulcer of left heel, unspecified stage; L89.619 Pressure ulcer of right heel, unspecified stage; D72.9 Disorder of white blood cells, unspecified; G89.29 Other chronic pain; M25.519 Pain in unspecified shoulder; Z79.82 Long term (current) use of aspirin; Z79.899 Other long term (current) drug therapy
CPT/HCPCS: 36415; 80048; 85025; 86140; 94640-76; 94760; 97116-GP; 97530-GP; A9270-GY; J1650

== ENCOUNTER 2017-05-02 08:10 | Emergency (ER) | payer MEDICARE, OTHER ==
[2017-05-02] MEDS ORDERED: Sodium Chloride 0.9% 10 ML Syringe FLUSH PRN (08:40)
[2017-05-02] MEDS ORDERED: Albuterol 0.083% 2.5 MG/3 ML Neb Soln NEB ONE (08:43)
[2017-05-02] MEDS ORDERED: Morphine 4 MG/ML Syringe IVPUSH ONE ×2 (11:08→11:37)
[2017-05-02 11:35] VITALS: BP 126/58
--- NOTE | 2017-05-02 14:24 | ER ---
Date of Service: 05/02/2017 SUBJECTIVE: Devon presents to the emergency room with complaints of weakness. The patient states that he had a mechanical fall, acute kidney injury, congestive heart failure as his diagnosis. He states that he slipped on the floor, which caused his fall, but he states that he did not have a loss of consciousness. He states that he did not strike his head. The patient states that he has a history of peripheral vascular disease and severe peripheral edema and has been doctoring for injury to his nail of his right great toe. The patient stated on arrival he was experiencing some dyspnea. He was hospitalized on April 22 with syncopal episode and was found to have congestive heart failure and was diuresed for approximately 13 pounds of fluid. PAST MEDICAL HISTORY: 1. Congestive heart failure. 2. Valvular heart disease. 3. Guillain-Mccaskill. 4. Coronary artery disease. 5. COPD. 6. Asthma. 7. Chronic kidney disease. 8. GERD. 9. BPH. 10.Restless legs syndrome. 11.Anemia. 12.Hypertension. 13.Wheelchair dependent. ALLERGIES: 1. Amoxicillin. 2. Influenza. 3. TriCor. 4. Gemfibrozil. 5. Niacin. 6. Lipitor. 7. Ciprofloxacin. 8. Ephedrine. 9. Zetia. MEDICATIONS: Please see nursing notes. REVIEW OF SYSTEMS: GENERAL: No fever or chills. HEENT: No sore throat, rhinorrhea, or congestion. RESPIRATORY: Positive for mild shortness of breath and wheezing. HEART: Denies any chest pain or shortness of breath. ABDOMEN: Denies any abdominal discomfort. EXTREMITIES: Please see history of present illness. : Denies any dysuria. NEUROLOGIC: Denies any fainting, blackouts, lightheadedness. PHYSICAL EXAMINATION: GENERAL: He is an 82-year-old male patient, who is in no acute distress. VITAL SIGNS: Blood pressure is 140/59, pulse rate is 78, temperature is 35.9, respiratory rate is 20. SKIN: Warm, pale, and dry. HEENT: Head is normocephalic, atraumatic. Eyes, PERRLA. Extraocular movements are intact. Mouth, oral mucosa is moist. He does have significant facial edema. LUNGS: Diminished with expiratory wheezing. HEART: Regular rate and rhythm. ABDOMEN: Soft, nontender. There is no hepatosplenomegaly or masses noted. EXTREMITIES: Peripheral edema with evidence of injury to the right toenail and stasis ulcers to the toes of both feet. NEUROLOGIC: The patient is alert, oriented, answers all questions appropriately. His speech is fluent. His gait is within normal limits. LABORATORY DATA: WBCs 7.0, hemoglobin is 10.7, platelets are 217. Coags: PT is 12.0, INR is 1.1. Chemistry: Sodium is 146, potassium is 4.5, chloride is 104, bicarb is 35, BUN is 70, creatinine is 2.1, creatinine clearance is 25.36, GFR is 30, glucose is 149, lactic acid is 1.1, calcium is 8.8, corrected calcium is 9.6. Total bilirubin is 0.6, AST is 18, ALT is 25, alkaline phosphatase is 52. Troponin is 0.027. CRP is 5.9. BNP is 2770. Total protein is 7.1, albumin is 3.0. Urinalysis reveals specific gravity is 1.010, pH is 7.0, and negative for protein, glucose, ketones, occult blood, nitrites, or bilirubin. He did have trace of leukocyte esterase. EMERGENCY ROOM COURSE: IV access was established. He was given morphine 4 mg in 2 separate doses for the pain to his feet and lower extremities. He remained stable in my care in the emergency room. ASSESSMENT: 1. Congestive heart failure. 2. Acute kidney injury. 3. Severe peripheral vascular disease. PLAN: I did speak with Dr. Darby regarding admission for this patient, but she did not feel comfortable admitting him to this facility, so subsequently the patient was transferred to [facility] in [place]. I spoke with Dr. Vargas, who accepted the patient in transfer. The patient will be transported by [facility] ground ambulance. All questions were answered. MWK: 05/02/2017 12:04:41 MODL: 05/02/2017 13:45:22 /[id number]
== END 2017-05-02 12:00 | disposition short-term general hospital (02) ==
LOC: VM.ED 08:10
DX: S37.009A Unspecified injury of unspecified kidney, initial encounter (principal); S99.921A Unspecified injury of right foot, initial encounter; I13.0 Hypertensive heart and chronic kidney disease with heart failure and stage 1 through stage 4 chronic kidney disease, or unspecified chronic kidney disease; N18.9 Chronic kidney disease, unspecified; I50.9 Heart failure, unspecified; J44.9 Chronic obstructive pulmonary disease, unspecified; K21.9 Gastro-esophageal reflux disease without esophagitis; Z86.2 Personal history of diseases of the blood and blood-forming organs and certain disorders involving the immune mechanism; Z99.3 Dependence on wheelchair; W01.0XXA Fall on same level from slipping, tripping and stumbling without subsequent striking against object, initial encounter
CPT/HCPCS: 36415; 71010; 80053; 81001; 83605; 83880; 84484; 85025; 85610; 86140; 87040; 93005; 94640; 96374; 99285; J2270; J7620